=== PATIENT | male | born 1960 | race American Indian/Alaskan Native ===

== ENCOUNTER 2018-05-20 19:54 | Emergency (ER) | payer OTHER, MEDICARE ==
[2018-05-20 20:51] VITALS: BP 128/83
[2018-05-20] MEDS ORDERED: TYLENOL PO ONE (20:56)
[2018-05-20] MEDS ORDERED: MOTRIN PO ONE (20:56)
--- NOTE | 2018-05-20 21:00 | Emergency Department Report ---
ED General Adult HPI - General Chief complaint: Pain General Stated complaint: NECK TO KNEE PAIN/GRANDE/POSS SEIZURE Time Seen by Provider: 05/20/18 20:41 Source: patient, EMS (ems notes not available at time of chart dictation), RN notes reviewed Mode of arrival: Stretcher Limitations: No Limitations - History of Present Illness Initial comments: This is a 57-year-old gentleman who is not known to this provider previously, reports a past medical history of arthritis, follows up at the [facility], reports that he scheduled for a left total knee replacement in June, also has a history of seizure disorder and takes Dilantin. He presents to the ER with a complaint of requesting refill on pain medication. He specifically requests hydrocodone. He indicates he has chronic left knee pain and swelling, and thinks that the hydrocodone will improve his swelling and pain. The pain is achy, and increases with palpation, and walking. It decreases with rest. It does not radiate anywhere. He also complains of chronic right upper arm pain since a fracture February 2017. He indicates he thought he might have a seizure, but he did not have a seizure. He reports compliance with his antiepileptic drug therapy. He denies headache, neck pain, chest pain, abdominal pain, shortness of breath, urinary symptoms. -: Gradual, month(s) Location: left, lower extremity Quality: aching Consistency: intermittent Improves with: movement, rest Associated Symptoms: denies: confusion, chest pain, cough, diaphoresis, fever/ chills, headaches, loss of appetite, malaise, nausea/vomiting, rash, seizure, shortness of breath, syncope, weakness - Related Data Home Medications Medication Instructions Recorded Confirmed Last Taken Acetaminophen [Acetaminophen TAB] 650 mg PO Q4H 11/14/15 11/14/15 Unknown Aspirin [Aspirin BABY CHEW TAB] 81 mg PO DAILY 11/14/15 11/14/15 Unknown HYDROcodone/APAP 5-325 [[place] 5 mg PO QID PRN 11/14/15 11/14/15 Unknown 5-325 mg TAB] Ibuprofen [Motrin 800 MG tab] 800 mg PO QID PRN 11/14/15 11/14/15 Unknown Magnesium Hydroxide [Milk of 30 ml PO DAILY PRN 11/14/15 11/14/15 Unknown Magnesia] Methocarbamol [Robaxin TAB] 750 mg PO Q8H PRN 11/14/15 11/14/15 Unknown QUEtiapine [SEROquel] 25 mg PO BID 11/14/15 11/14/15 Unknown QUEtiapine [SEROquel] 600 mg PO QHS 11/14/15 11/14/15 Unknown Sertraline [Zoloft] 100 mg PO QDAY 11/14/15 11/14/15 Unknown Ziprasidone Mesylate [Geodon] 10 mg IM Q6H PRN 11/14/15 11/14/15 Unknown cloNIDine [Catapres] 0.1 mg PO Q8H PRN 11/14/15 11/14/15 Unknown hydrALAZINE [Apresoline TAB] 100 mg PO TID 11/14/15 11/14/15 Unknown levETIRAcetam [Keppra TAB] 500 mg PO BID 11/14/15 11/14/15 Unknown traZODone [Desyrel] 150 mg PO QHS 11/14/15 11/14/15 Unknown Dextromethorphan HBr/Quinidine 20 mg PO DAILY 11/15/15 11/15/15 11/14/15 16:30 [Nuedexta 20-10 mg Capsule] Previous Rx's Medication Instructions Recorded Last Taken Type Doxycycline [Vibramycin CAP] 100 mg PO Q12HR #14 capsule 11/15/15 Unknown Rx Acetaminophen [Tylenol Arthritis] 650 mg PO Q6HR PRN #30 tablet.er 05/20/18 Unknown Rx Ibuprofen [Motrin] 600 mg PO Q8H PRN #30 tablet 05/20/18 Unknown Rx Allergies Allergy/AdvReac Type Severity Reaction Status Date / Time No Known Allergies Allergy Verified 11/14/15 20:12 ED Review of Systems ROS: Stated complaint: NECK TO KNEE PAIN/GRANDE/POSS SEIZURE Other details as noted in HPI Constitutional: denies: fever Eyes: denies: eye discharge ENT: denies: congestion Respiratory: denies: cough Cardiovascular: denies: chest pain Genitourinary: denies: dysuria Musculoskeletal: joint swelling, arthralgia, myalgia. denies: back pain ED Past Medical Hx - Past Medical History Previous Medical History?: Yes Hx Hypertension: Yes Hx Congestive Heart Failure: No Hx Diabetes: No Hx Sickle Cell Disease: No Hx Arthritis: Yes (RA) Hx Seizures: Yes Hx Psychiatric Treatment: Yes (PTSD) Hx Asthma: No Hx COPD: No - Social History Smoking Status: Former Smoker Substance Use Type: None - Medications Home Medications: Home Medications Medication Instructions Recorded Confirmed Last Taken Type Acetaminophen [Acetaminophen TAB] 650 mg PO Q4H 11/14/15 11/14/15 Unknown History Aspirin [Aspirin BABY CHEW TAB] 81 mg PO DAILY 11/14/15 11/14/15 Unknown History HYDROcodone/APAP 5-325 [[place] 5 mg PO QID PRN 11/14/15 11/14/15 Unknown History 5-325 mg TAB] Ibuprofen [Motrin 800 MG tab] 800 mg PO QID PRN 11/14/15 11/14/15 Unknown History Magnesium Hydroxide [Milk of 30 ml PO DAILY PRN 11/14/15 11/14/15 Unknown History Magnesia] Methocarbamol [Robaxin TAB] 750 mg PO Q8H PRN 11/14/15 11/14/15 Unknown History QUEtiapine [SEROquel] 25 mg PO BID 11/14/15 11/14/15 Unknown History QUEtiapine [SEROquel] 600 mg PO QHS 11/14/15 11/14/15 Unknown History Sertraline [Zoloft] 100 mg PO QDAY 11/14/15 11/14/15 Unknown History Ziprasidone Mesylate [Geodon] 10 mg IM Q6H PRN 11/14/15 11/14/15 Unknown History cloNIDine [Catapres] 0.1 mg PO Q8H PRN 11/14/15 11/14/15 Unknown History hydrALAZINE [Apresoline TAB] 100 mg PO TID 11/14/15 11/14/15 Unknown History levETIRAcetam [Keppra TAB] 500 mg PO BID 11/14/15 11/14/15 Unknown History traZODone [Desyrel] 150 mg PO QHS 11/14/15 11/14/15 Unknown History Dextromethorphan HBr/Quinidine 20 mg PO DAILY 11/15/15 11/15/15 11/14/15 16:30 History [Nuedexta 20-10 mg Capsule] Doxycycline [Vibramycin CAP] 100 mg PO Q12HR #14 capsule 11/15/15 Unknown Rx Acetaminophen [Tylenol Arthritis] 650 mg PO Q6HR PRN #30 tablet.er 05/20/18 Unknown Rx Ibuprofen [Motrin] 600 mg PO Q8H PRN #30 tablet 05/20/18 Unknown Rx ED Physical Exam - General Limitations: No Limitations General appearance: alert, in no apparent distress - Head Head exam: Present: atraumatic, normocephalic - Eye Eye exam: Present: normal appearance, EOMI. Absent: nystagmus - ENT ENT exam: Present: normal exam, normal orophraynx, mucous membranes moist, normal external ear exam - Neck Neck exam: Present: normal inspection, full ROM. Absent: tenderness - Respiratory Respiratory exam: Present: normal lung sounds bilaterally. Absent: respiratory distress - Cardiovascular Cardiovascular Exam: Present: normal rhythm, tachycardia, normal heart sounds. Absent: systolic murmur, diastolic murmur, rubs, gallop - GI/Abdominal GI/Abdominal exam: Present: soft, normal bowel sounds. Absent: distended, tenderness, guarding, rebound, rigid, pulsatile mass - Rectal Rectal exam: Present: deferred - Extremities Exam Extremities exam: Present: normal inspection, full ROM (there is a small nontender effusion in the left knee. There is full active and passive range of motion of the left knee. There is no redness, pus or streaking. Compartments soft. No warmth.), normal capillary refill, pedal edema (there is 1+ pitting edema in the bilateral lower extremities), other (2+ pulses noted in the bilateral upper, lower extremities. Compartments soft. No long bony tenderness. The pelvis is stable.). Absent: tenderness, calf tenderness - Back Exam Back exam: Present: normal inspection, full ROM. Absent: tenderness, CVA tenderness (R), paraspinal tenderness, vertebral tenderness - Neurological Exam Neurological exam: Present: alert, oriented X3, CN II-XII intact, normal gait ( patient walks with a steady gait with a one-person assist), other (Extraocular movements intact. Tongue midline. No facial droop. Facial sensation intact to light touch in the V1, V2, V3 distribution bilaterally. 5 and 5 strength in 4 extremities.. Sensation is intact to light touch in 4 extremities.). Absent : motor sensory deficit - Psychiatric Psychiatric exam: Present: normal affect, normal mood - Skin Skin exam: Present: warm, dry, intact, normal color. Absent: rash ED Course Vital Signs 05/20/18 20:36 Temperature 98.6 F Pulse Rate 101 H Respiratory 18 Rate Blood Pressure 128/83 O2 Sat by Pulse 98 Oximetry ED Medical Decision Making - Lab Data Vital Signs 05/20/18 20:36 Temperature 98.6 F Pulse Rate 101 H Respiratory 18 Rate Blood Pressure 128/83 O2 Sat by Pulse 98 Oximetry - Medical Decision Making Differential diagnosis, including but not limited to: Narcotic dependence, chronic left knee effusion, chronic left knee arthritis, history of seizure disorder Assessment and plan: 57-year-old male with a primary complaint of chronic left knee pain. Patient walks with a one-person assist and a cane. There is no redness, pus, streaking. He does not need emergent imaging, arthrocentesis or laboratory study/evaluation. I instructed the patient that he should follow-up with his orthopedist or primary care doctor. I specifically informed the patient that it was my opinion that he did not require an acute prescription of hydrocodone, and that he would be discharged with acetaminophen and ibuprofen. The patient is clinically sober at this time, with a [place] Coma Scale of 15. He reports he has not had a seizure. He denies other acute symptoms. There does not appear to be an emergent condition at this time. The patient can follow-up with his outpatient primary care doctors. Critical care attestation.: If time is entered above; I have spent that time in minutes in the direct care of this critically ill patient, excluding procedure time. ED Disposition Clinical Impression: Left knee pain, History of seizure Disposition: [id number] TO HOME OR SELFCARE Is pt being admited?: No Does the pt Need Aspirin: No Condition: Stable Instructions: Arthralgia (ED) Additional Instructions: Rest, and avoid heavy lifting. Avoid strenuous physical activities. Take pain medications as needed/directed. Follow-up with your primary care doctor orthopedist or pain specialist within the next week. Dr. Godwin is a local orthopedist. Dr. Cobos is a local pain specialist. Do not drive or upright motor vehicles and was cleared by her primary care doctor to do so. Return to the ER right away with new pain, worsening pain, migration of pain, projectile vomiting, fevers or chills, inability to tolerate liquid feeds. Referrals: SUGEY ELAM MD [Primary Care Provider] - 3-5 Days SERGIO GODWIN MD [Staff Physician] - 3-5 Days ROBERT GAMING MD [Staff Physician] - 3-5 Days
== END 2018-05-20 23:07 | disposition home or self-care (01) ==
LOC: ED 19:54
DX: M25.562 Pain in left knee (principal); M79.601 Pain in right arm; G89.29 Other chronic pain; I10 Essential (primary) hypertension; M19.90 Unspecified osteoarthritis, unspecified site; F43.10 Post-traumatic stress disorder, unspecified; Z87.891 Personal history of nicotine dependence